=== PATIENT | female | born 2000 | race American Indian/Alaskan Native ===

== ENCOUNTER 2021-03-26 22:08 | Emergency (ER) | payer OTHER | END 2021-03-26 22:49 | LOC: ED 22:08 | DX: K92.0 Hematemesis (principal); Z53.21 Procedure and treatment not carried out due to patient leaving prior to being seen by health care provider ==

== ENCOUNTER 2022-02-21 00:13 | Emergency (ER) | payer SELFPAY ==
[2022-02-21 00:27] VITALS: BP 121/60
== END 2022-02-21 03:30 | disposition left against medical advice (07) ==
LOC: ED 00:13
DX: M79.604 Pain in right leg (principal); M79.605 Pain in left leg; Z53.21 Procedure and treatment not carried out due to patient leaving prior to being seen by health care provider

== ENCOUNTER 2022-05-30 02:11 | Outpatient (CLI) | payer OTHER ==
[2022-05-30 02:29] VITALS: BP 119/55
[2022-05-30 04:01] LABS: Bacteria,Urine 1+ /HPF (Negative); Mucus,Urine FEW /HPF
[2022-05-30 04:04] LABS: Bilirubin,Urine Negative (Negative); Blood,Urine Negative (Negative); Color,Urine Straw (Yellow); Urobilinogen,Urine < 2.0 mg/dL (<2.0)
== END 2022-05-30 03:45 | disposition left against medical advice (07) ==
LOC: TRG 02:11 → APU 02:20 → TRG 03:45
PROVIDERS: ATTEND Obstetrics & Gynecology Gynecology
DX: O46.93 Antepartum hemorrhage, unspecified, third trimester (principal); O26.893 Other specified pregnancy related conditions, third trimester; M54.50 Low back pain, unspecified; Z3A.39 39 weeks gestation of pregnancy
CPT/HCPCS: 81001